=== PATIENT | male | born 1965 | race Two or more races ===

== ENCOUNTER 2018-03-27 19:17 | Emergency (ER) | payer OTHER ==
[~2018-03-27] VITALS: Ht 180.3 cm; Wt 95.3 kg
[2018-03-27] MEDS ORDERED: TRUVADA 167 MG1 EACH (19:40)
[2018-03-27] MEDS ORDERED: PEPCID40 MG (19:42)
[2018-03-27] MEDS ORDERED: UROXATRAL10 MG (19:42)
[2018-03-27] MEDS ORDERED: FINASTERIDE5 MG (19:42)
== END 2018-03-27 21:19 | disposition home or self-care (01) ==
LOC: ER 19:17
DX: T59.91XA Toxic effect of unspecified gases, fumes and vapors, accidental (unintentional), initial encounter (principal); R07.0 Pain in throat; R06.02 Shortness of breath; Y92.520 Airport as the place of occurrence of the external cause